=== PATIENT | female | born 1945 | race Asian ===

== ENCOUNTER → 2017-02-27 | Outpatient (CLI) | payer MEDICAID, MEDICARE ==
[~2017-02-27] MED LIST: DIGO250T PO; FURO-93 PO; LEVO75TA5 PO; LISI5TAB7 PO; METO25TA35 PO; POTA10CA PO; SPIR25TA3 PO
== END | disposition home or self-care (01) ==
LOC: CFH 14:36
PROVIDERS: ATTEND Internal Medicine Cardiovascular Disease
DX: I10 Essential (primary) hypertension (principal)
CPT/HCPCS: 93306